=== PATIENT | female | born 1955 | race Caucasian/White ===

== ENCOUNTER → 2020-07-30 13:33 | Outpatient (CLI) | payer OTHER, SELFPAY ==
--- NOTE | ~2020-07-30 | MM_ITS ---
EXAMINATION: MM screening [facility] BI w winnie HISTORY: Screening mammogram TECHNIQUE: Craniocaudal and mediolateral oblique 3-D tomosynthesis images were obtained and synthetic 2-D images were generated. CAD analysis was submitted and interpreted. COMPARISON: 02/15/2019, 09/11/2017, 08/04/2016 BREAST PARENCHYMAL COMPOSITION: The breasts are heterogeneously dense, which may obscure small masses . FINDINGS: There is no evidence of suspicious mass, calcification, or architectural distortion to sugg est malignancy in either breast. There has been no suspicious interval change. IMPRESSION: 1. No mammographic evidence of malignancy. 2. Recommend routine screening mammography in one year. BI-RADS Category 1: Negative Reviewed, dictated and finalized at location A. RAIL HELPER
== END ==
PROVIDERS: PCP Internal Medicine; Visit Provider Internal Medicine
DX: Z12.31 Encounter for screening mammogram for malignant neoplasm of breast (principal)
CPT/HCPCS: 77063; 77067

== ENCOUNTER → 2021-09-17 10:29 | Outpatient (CLI) | payer OTHER, SELFPAY ==
--- NOTE | ~2021-09-17 | MM_ITS ---
EXAMINATION: MM screening [facility] BI w winnie HISTORY: Screening mammogram TECHNIQUE: Craniocaudal and mediolateral oblique 3-D tomosynthesis images were obtained and synthetic 2-D images were generated. CAD analysis was submitted and interpreted. COMPARISON: 07/30/2020, 02/15/2019, 09/11/2017 BREAST PARENCHYMAL COMPOSITION: The breasts are heterogeneously dense, which may obscure small masses . FINDINGS: There is no evidence of suspicious mass, calcification, or architectural distortion to sugg est malignancy in either breast. There has been no suspicious interval change. IMPRESSION: 1. No mammographic evidence of malignancy. 2. Recommend routine screening mammography in one year. BI-RADS Category 1: Negative Reviewed, dictated and finalized at location A. DEODORIZER SERVICER
== END ==
PROVIDERS: PCP Internal Medicine; Visit Provider Internal Medicine
DX: Z12.31 Encounter for screening mammogram for malignant neoplasm of breast (principal)
CPT/HCPCS: 77063; 77067

== ENCOUNTER → 2022-12-02 14:46 | Outpatient (CLI) | payer MEDICARE, SELFPAY ==
--- NOTE | ~2022-12-02 | MM_ITS ---
EXAMINATION: MM screening [facility] BI w winnie HISTORY: Screening TECHNIQUE: Craniocaudal and mediolateral oblique 3-D tomosynthesis images were obtained and synthetic 2-D images were generated. CAD analysis was submitted and interpreted. COMPARISON: Comparison to multiple prior studies sequentially, with oldest reviewed study dated 07/16 sixth. BREAST PARENCHYMAL COMPOSITION: The breasts are heterogeneously dense, which may obscure small masses FINDINGS: Stable bilateral breast asymmetries. No new masses, calcifications or architectural distort ion to suggest malignancy. There is no evidence of suspicious mass, calcification, or architectural d istortion to suggest malignancy in either breast. There has been no suspicious interval change. IMPRESSION: 1. No mammographic evidence of malignancy. 2. Recommend routine screening mammography in one year. BI-RADS Category 2: Benign finding(s). Reviewed, dictated and finalized at location A.
== END ==
PROVIDERS: PCP Internal Medicine; Visit Provider Internal Medicine
DX: Z12.31 Encounter for screening mammogram for malignant neoplasm of breast (principal)
CPT/HCPCS: 77063; 77067

== ENCOUNTER 2023-12-23 11:19 | Outpatient (CLI) | payer MEDICARE, SELFPAY ==
--- NOTE | ~2023-12-23 | MM_ITS ---
EXAMINATION: MM screening [facility] BI w winnie HISTORY: Screening mammogram TECHNIQUE: Craniocaudal and mediolateral oblique 3-D tomosynthesis images were obtained and synthetic 2-D images were generated. Bilateral rotated lateral CC views. CAD analysis was submitted and interp reted. COMPARISON: 12/02/2022, 09/17/2021, 07/30/2020 bilateral screening mammogram examinations BREAST PARENCHYMAL COMPOSITION: The breasts are heterogeneously dense, which may obscure small masses . FINDINGS: . Possible mass in upper mid right breast. Diagnostic right mammogram is recommended, with ultrasound if required. Otherwise no suspicious mass, architectural distortion, malignant calcification, skin thickening or r etraction or significant new or developing density of either breast is detected. IMPRESSION: 1. Possible mass in upper mid right breast 2. Diagnostic right mammogram is recommended, with ultrasound if required BI-RADS Category 0: Incomplete: Needs additional imaging evaluation. Reviewed, dictated and finalized at location A.
== END 2023-12-23 11:20 ==
PROVIDERS: PCP Family Medicine; Visit Provider Family Medicine
DX: Z12.31 Encounter for screening mammogram for malignant neoplasm of breast (principal); R92.8 Other abnormal and inconclusive findings on diagnostic imaging of breast
CPT/HCPCS: 77063; 77067

== ENCOUNTER 2024-01-22 08:14 | Outpatient (CLI) | payer MEDICARE, OTHER, SELFPAY ==
--- NOTE | ~2024-01-22 | MMUS_ITS ---
EXAMINATION: MM diagnostic [facility] RT w winnie, US breast RT complete HISTORY: Possible mass in the upper mid right breast reported on December 23, 2023 screening mammogram TECHNIQUE: Additional 3-D tomosynthesis images of the right breast were performed and synthetic 2-D i mages were generated. CAD analysis was submitted and interpreted. High resolution complete right fany st ultrasound examination including all 4 quadrants and subareolar area was performed. COMPARISON: December 23, 2023 bilateral screening mammogram 08/2016 complete right breast ultrasound examination, reported negative FINDINGS: MAMMOGRAPHIC FINDINGS: No suspicious mass or architectural distortion, malignant calcification, skin thickening or retractio n is evident. ULTRASOUND: 9:00 3 cm from nipple: Approximately 3 mm cyst. No suspicious mass or shadowing of the right breast is detected. IMPRESSION: 1. No mammographic or sonographic evidence of malignancy right breast 2. Routine annual mammographic screening is recommended BI-RADS Category 2: Benign finding(s). Reviewed, dictated and finalized at location B. IMPRESSION: 1. No mammographic or sonographic evidence of malignancy right breast 2. Routine annual mammographic screening is recommended BI-RADS Category 2: Benign finding(s).
== END 2024-01-22 08:15 ==
LOC: MICIMG 08:16
PROVIDERS: PCP Family Medicine; Visit Provider Family Medicine
DX: R92.8 Other abnormal and inconclusive findings on diagnostic imaging of breast (principal)
CPT/HCPCS: 76641; 77061; 77065; G0279

== ENCOUNTER 2024-12-29 12:32 | Outpatient (CLI) | payer MEDICARE, OTHER, SELFPAY ==
--- NOTE | ~2024-12-29 | MM_ITS ---
EXAMINATION: MM screening jaimee BI w winnie HISTORY: Screening TECHNIQUE: Craniocaudal and mediolateral oblique 3-D tomosynthesis images were obtained and synthetic 2-D images were generated. CAD analysis was submitted and interpreted. COMPARISON: Comparison to multiple prior studies sequentially, with oldest reviewed study dated 12/2018. BREAST PARENCHYMAL COMPOSITION: Dense: The breasts are heterogeneously dense, which may obscure small masses FINDINGS: There is no evidence of suspicious mass, calcification, or architectural distortion to sugg est malignancy in either breast. There has been no suspicious interval change. IMPRESSION: 1. No mammographic evidence of malignancy. 2. Recommend routine screening mammography in one year. BI-RADS Category 1: Negative Reviewed, dictated and finalized at location B.
--- OUTSIDE RECORDS SUMMARY | 2024-12-29 12:50 | XMS_ITS | Clinical Summary ---
Author Organization [facility] Address [address] [place] [address] Phone Care Team Providers Care Aircraft Refueler Name Role Phone Unavailable Primary Care Provider Unavailabl e Allergies Active Allergy Reactions Criticality Noted Date Comments Adhesive Unknown 02/12/2022 Metoprolol Other (See Comments),Constipation Low 01/30/2020 Constipation, weight gain Constipation, weight gain Medications Insulin [place], Disposable, (BD Ultra-Fine Mini Pen Needle) 31 gauge x 3/16 Needle Use with daily teriparatide injections 100 Each 2 Active diltiaZEM (CARDIZEM CD) 120 mg Controlled Delivery 24 hour capsule Take 120 mg by mouth daily. Active Cholecalciferol , Vitamin D3, 50 mcg (2,000 unit) Capsule Take 2,000 Units by mouth daily. otc Active apixaban (Eliquis) 5 mg tablet Take 2.5 mg by mouth 2 times daily. Per cardio Active sotalol HCl (SOTALOL ORAL) Take by mouth. Active Active Problems Problem Noted Date Diagnosed Date Age-related osteoporosis wit hout current pathological fracture 12/31/2022 Hypercalciuria 12/31/2022 Compression fracture of thor acic vertebra with routine healing 12/31/2022 High serum vitamin D 06/11/2022 Resolved Problems Problem Noted Date Diagnosed Date Resolved Date Localized osteoporosis with current pathological fracture 06/11/2022 07/22/2023 Encounters Date Type Department Care Team Description 11/30/2024 External Device Data STL ABSTRACTION Provider, Abstract 11/19/2024 External Device Data ST[facility] ABSTRACTION Provider, Abstract 11/18/2024 External Device Data [facility] ABSTRACTION Provider, Abstract 2024 External Device Data [facility] ABSTRACTION Provider, Abstract 11/15/2024 External Device Data STL ABSTRACTION Provider, Abstract 11/01/2024 External Device Data STL ABSTRACTION Provider, Abstract 10/05/2024 External Device Data STL ABSTRACTION Provider, Abstract 10/04/2024 External Device Data STL ABSTRACTION Provider, Abstract from Last 3 Months Family History Medical History Relation Name Comments Other Brother suicide Other Daughter depression Cancer Father Heart Attack Father No Known Problems Mother MVA Relation Name Status Comments Brother Daughter Alive Father Mother Sister Alive Social History Tobacco Use Types Packs/Day Years Used Date Smoking Tobacco: Never Tobacco Cessation:Counseling Given: Not Answered Alcohol Use Standard Drinks/Week Comments Yes 0 (1 standard drink = 0.6 oz pur e alcohol) very occasional Comments Unknown Sex and Gender Information Value Date Recorded Sex Assigned at Not on file 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 Gender Identity Not on file Sexual Orientation Not on file Last Filed Vital Signs Vital Sign Reading Time Taken Comments Blood Pressure 126/78 01/21/2024 8:54 AM CDT Pulse 76 01/21/2024 8:54 AM CDT Temperature - - Respiratory Rate - - Oxygen Saturation 98% 01/21/2024 8:54 AM CDT Inhaled Oxygen Concentration - - Weight 57.6 kg (127 lb) 01/21/2024 8:54 AM CDT Height 157.5 cm (5' 2 ) 01/21/2024 8:54 AM CDT Body Mass Index 23.23 01/21/2024 8:54 AM CDT Plan of Treatment Health Maintenance Due Date Last Done Comments FIT-DNA Q 3 years 2001 FIT/FOBT Q 1 year 2001 Flex Sig/CT Colonography Q 5 years 2001 PNEUMOCOCCAL VACCINE 50+ YEA RS (1 of 1 - PCV) 2006 ZOSTER VACCINE (1 of 2) 2006 INFLUENZA VACCINE (#1) 2024 BREAST CANCER SCREENING 01/21/2025 01/22/20 24, 12/23/2023, 12/02/2022, Additional history exists DTAP/TDAP/TD VACCINES (2 - T d or Tdap) 07/04/2030 07/04/2020 RSV VACCINE (60+ or ) (1 - 1-dose 75+ series) 11/17/2031 COLORECTAL SCREENING 04/03/2032 04/03/2022, 02/24/20 15 Colorectal Cancer Screening 04/03/2032 OSTEOPOROSIS SCREENING Completed 4, 09/03/2022, 09/03/2022, Additional history exists Procedures Procedure Name Priority Date/Time Associated Diagnosis Comments XR DEXA BONE DENSITY 2 SITES Routine 09/03/2022 from Last 3 Months or Most Recently Relevant to Health Maintenance Results * XR DEXA BONE DENSITY 2 SITES (09/03/2022) Anatomical Region Laterality Modality Other us Marta Bethea MD DIAGNOSTIC IMAGING ORDERA BLES Final Result from Last 3 Months or Most Recently Relevant to Health Maintenance Insurance RX [employer] RX Member Subscriber Plan / Payer (Ef fective 2022-Present) Name:Jaimie Jorge Relation to Subscriber:Not on file Name:Jaimie Jorge Date of :1955 Payer ID:Not on file Type:RX Commercial Address: [address] [employer] [place] SUPP MEDICARE PART A AND B
--- OUTSIDE RECORDS SUMMARY | 2024-12-29 12:50 | XMS_ITS | Data Portability ---
Author Organization [place] [facility] Address [address] [address] Assessment Encounter Date Assessment Date Assessment LastModified by Organization Details LastModified Time 01/14/2024 01/14/2024 Jaimie has postmenopausal osteopenia. Her Fragility scores were very reasonable as were her Z-scores. I recommend a resistance exercise program and referred her to PT to start LiftMor exercises. Will see back in one year for repeat Echo. No recommendation for medications at this time. May continue current supplements. [email or web address] Not available 01/14/2024 23:37:05 Plan of Treatment Reminders Order Date Submit Date Provider Last Modified By Organization Details Last Modified Time Details Appointments None recorded. Lab None recorded. Referral physical therapist referral - Please initiate Liftmor study protocol for bone health and provide home program. Please also do full assessment . Thank you. 2023 024 [email or web address] Not available 14:58:17 Procedures None recorded. Surgeries None recorded. Imaging None recorded. Medication Orders None recorded. Patient TargetsNo targets recorded. Patient InstructionsNo instructions recorded. Reason for Referral Physical Therapist Referral for Postmenopausal osteopenia Please initiate Liftmor study protocol for bone health and provide home program. Please also do full assessment. Thank you. Referring Physician: Ross Jarquin, Sports Medicine, Encounter Date: 01/14/2024 Results Created Date Observation Date Name Description Value Unit Range Abnormal Flag Note LastModifiedBy Organization Detail LastModifiedTime 01/14/20 24 12/30/2023 DEXA No observ ation record ed. BARCODE Not Available 2023 13:59:40 01/14/20 09/03/2022 DEXA No observ ation record ed. BARCODE Not Available 2023 14:01:18 01/14/20 24 01/14/2024 imagi ng/di agnos tic resul t No observ ation record ed. BARCODE Not Available 2023 14:42:46 01/14/20 24 01/14/2024 imagi ng/di agnos tic resul t No observ ation record ed. BARCODE Not Available 2023 15:11:47 01/15/20 24 01/14/2024 imagi ng/di agnos tic resul t No observ ation record ed. [email or web address] Not Available 2023 13:14:19 01/15/20 24 01/14/2024 imagi ng/di agnos tic resul t No observ ation record ed. [email or web address] Not Available 2023 13:14:19 01/15/20 24 01/14/2024 imagi ng/di agnos tic resul t No observ ation record ed. [email or web address] Not Available 2023 13:14:19 Result Notes None recorded. Problems Name Problem SNOMED Code Status Onset Date Resolution Date Notes Provider Name and Address Organization Details Recorded Time Arthritis 2101689 Active 2023 Jodie rich [place] [facility] 4 14:52:58 Atrial fibrillation 23909545 Active 2023 BENITA Rhodes - [facility] 4 14:53:25 Gastroesophage al reflux disease 494432839 Active 2023 BENITA Rhodes - [facility] 4 14:53:33 Problem Notes None recorded. Procedures Surgical History Date Name Laterality Status Provider Name and Address Organization Details Recorded Time 01/14/2024 Echolight completed Ross Jarquin MD [address] [facility] [address], [place], [address], [place] [facility] 01/14/2024 23:35:08 Imaging Results Imaging Date Name Status LastModified by [facility] Details LastModified Time 12/30/2023 DEXA completed BARCODE Information no t available 01/14/2024 13:59:40 09/03/2022 DEXA completed BARCODE Information no t available 01/14/2024 14:01:18 01/14/2024 imaging/diag nostic result completed BARCODE Information not available 01/14/2024 14:42:46 01/14/2024 imaging/diag nostic result completed BARCODE Information not available 01/14/2024 15:11:47 01/14/2024 imaging/diag nostic result completed [email or web address] Information not available 01/29/2024 13:14:19 01/14/2024 imaging/diag nostic result completed [email or web address] Information not available 01/29/2024 13:14:19 01/14/2024 imaging/diag nostic result completed [email or web address] Information not available 01/29/2024 13:14:19 Procedure Notes None recorded. Medical Equipment None Reported. Allergies No known drug allergies Medications Name Sig Start Date Stop Date Status Note LastModified by Organization Details LastModified Time methocarbam ol 500 mg tablet 01/13 completed Not Available Not Available Not Available sotalol 80 mg tablet TAKE 1 TABLET BY MOUTH TWICE A DAY active Not Available Not Available No t Available tramadol 50 mg tablet TAKE 1 TABLET BY MOUTH EVERY 6 HOURS NEEDED FOR PAIN 01/13 completed Not Available Not Available Not Available ofloxacin 0.3 % ear drops INSTILL 5 DROPS TO RIGHT EAR TWICE DAILY FOR 10 DAYS 01/13 completed Not Available Not Available Not Available diltiazem CD 120 mg capsule,ext ended release 24 hr TAKE ONE CAPSULE BY MOUTH EVERY DAY 01/13 completed Not Available Not Available Not Available polyethylen e glycol 3350 17 gram/dose oral powder MIX 1 CAPFUL OF POWDER IN LIQUID AND DRINK BY MOUTH EVERY DAY 01/13 completed Not Available Not Available Not Available methylpredn isolone 4 mg tablets in a dose pack FOLLOW PACKAGE DIRECTION S 01/13 completed Not Available Not Available Not Available cefdinir 300 mg capsule TAKE ONE CAPSULE BY MOUTH TWICE DAILY 01/13 completed Not Available Not Available Not Available diltiazem 60 mg tablet TAKE 1 TABLET (60 MG) BY MOUTH DAILY NEEDED FOR PALPITATI ONS 01/13 completed Not Available Not Available Not Available progesteron e micronized 100 mg capsule TAKE 1 CAPSULE BY MOUTH EVERY EVENING AT BEDTIME 01/13 completed Not Available Not Available Not Available amoxicillin 875 mg-potassiu m clavulanate 125 mg tablet TAKE 1 TABLET BY MOUTH TWICE DAILY FOR 10 DAYS 01/13 completed Not Available Not Available Not Available neomycin-po lymyxin-hyd rocort 3.5 mg-10,000 unit/mL-1 % ear drops,susp SHAKE LIQUID AND INSTILL 3 DROPS TO RIGHT EAR FOUR TIMES DAILY 01/13 completed Not Available Not Available Not Available Eliquis 5 mg tablet TAKE 1 TABLET BY MOUTH TWICE A DAY FOR ATRIAL FIBRILLAT ION active Not Available Not Available No t Available Vitals Date Recorded Body height Body mass index (BMI) Body weight Heart rate Systolic blood pressure Diastolic blood pressure Provider Name and Address Organization Details Last Updated DateTime 4 152.4 cm 24.8 kg/m2 80917.2 3 g 79 /min 124 mm[Hg] 72 mm[Hg] Jodie [facility] - [facility] 14:36:19 Social History Question Answer Notes LastModified by Organizat ion Details LastModified Time Tobacco Smoking Status Never Smoker BENITA [facility]odse - [facility] 01/14/2024 15:23:21 What Is Your Level Of Alcohol Consumption? Occasional Information not available 01/14/2024 Are You Blind Or Do You Have Difficulty Seeing? No [email or web address] Information not available 01/14/2024 Are You Currently Employed? No Retired [email or web address] Information not available 01/14/2024 Are You Deaf Or Do You Have Serious Difficulty Hearing? No Information not available 01/14/2024 What Type Of Diet Are You Following? REGULAR [email or web address] Information not available 01/14/2024 Which Of Your Hands Is Dominant? Left Information not available 01/14/2024 What Is Your Relationship Status? Information not available 01/14/2024 Do You Use Your Seat Belt Or Car Seat Routinely? Yes [email or web address] Information not available 01/14/2024 What Types Of Sporting Activities Do You Participate In? Walking [email or web address] Information not available 01/14/2024 Do You Use Any Illicit Or Recreational Drugs? No [email or web address] Information not available 01/14/2024 Do You Use Sunscreen Routinely? Yes [email or web address] Information not available 01/14/2024 Do You Or Have You Ever Used Any Other Forms Of Tobacco Or Nicotine? No [email or web address] Information not available 01/14/2024 Sex: Unknown Functional Status Question Answer Note LastModified by Organizat ion Details LastModified Time Do you have difficulty walking or climbing stairs? No [email or web address] Information not available 01/14/2024 Are you able to walk? YESWOREST [email or web address] Information not available 01/14/2024 Do you have difficulty doing errands alone? No [email or web address] Information not available 01/14/2024 Are you able to care for yourself? Yes Information not available 01/14/2024 Do you have difficulty dressing or bathing? No [email or web address] Information not available 01/14/2024 What is your exercise level? Moderate [email or web address] Information not available 01/14/2024 Mental Status Question Answer Note LastModified by Organization D etails LastModified Time Do you have difficulty concentrating, remembering or making decisions? No Information no t available 01/14/2024 Family History Relationship Description Onset Age of this Age Resolved Age Notes LastModified by Organization Details LastModified Time Father Arthritis Not availab le 01/14/2024 14:56:23 Mother Arthritis [email or web address] Not availab le 01/14/2024 14:56:23 Mother Depressive disorder [email or web address] Not available 2023 15:35:23 Unspecified Relation Arthritis grandp arents -unspe cified on mother or father side [email or web address] Not available 01/14/2024 14:56:23 Unspecified Relation Hypercholest erolemia Grandm other- unspec ified on mother or father side [email or web address] Not available 01/14/2024 15:35:15 Unspecified Relation Hypertensive disorder Grandm other- unspec ified on mother or father side [email or web address] Not available 01/14/2024 15:36:02 Daughter Disorder of thyroid gland [email or web address] Not available 2023 15:36:11 Medical History Condition Response Coronary Artery Disease N Other N Gout N MRSA N Blood Transfusion N Emphysema N Head Trauma/Injury N heart arrhythmia N COPD N Depression N Prostate Problems N Gastrointestinal Disease N Paralysis N Anxiety Disorder N Autoimmune disease N Vision or Eye Problems N Arthritis Y Blood Clot N Cancer N Stroke N Crohn's Disease N Leg or Foot Ulcers N Polio N Arrhythmia N Rheumatoid Arthritis N Fibromyalgia N Headaches N Kidney Disease N Heart Problems N sports induced asthma N Hospitalizations N Migraines N Artificial Joints N Kidney or Bladder Problems N Skin Problems N Joint Pain N Neck Pain N Urinary Problems N Brain Injury N Ulcers N Bleeding Disorder N Tuberculosis N AIDS/HIV N Asthma N Amputation N Peripheral Vascular Disease N Sleep Disorder N Hepatitis N Neuropathy N Pulmonary Embolism N Anxiety/Depression N Thyroid Disease N Hernia N Ostomy N Lung Disease N Pacemaker N Vascular Disease N Anesthesia Complications N Spasticity N Orthotics N Head Injury/Concussion Y Serious Illness or Injuries N Alcohol Overuse/Alcohol Abuse N High Cholesterol N Liver Disease N Parkinson's Disease N Falls N Thyroid Problems N ADD/ADHD N Osteoporosis/Osteopenia N Lyme disease N Anemia N Multiple Sclerosis N Back Pain N Heart Attack ([place]) N Mental Illness N Diabetes N Seizures/Epilepsy N Congestive Heart Failure (CHF) N Hyperlipidemia N Ankylosing Spondylitis N Epilepsy/Seizures N Sleep Apnea N Aneurysm N Heart Disease Y Hypertension N Osteoporosis N Gynecological HistoryNo gynecological history recorded. Obstetrics History GPAL:G 0 P 0 0 0 0 Past Encounters Encounter ID Performer Location Encounter Start Date Encounter Closed Date Diagnosis/Indication Diagnosis SNOMED-CT Code Diagnosis ICD10 Code Diagnosis Note [id number] Ross Jarquin MD [facility] [address] [address] 01/14/2024 13:50:04 01/14/2024 15:23:19 Postmenopausal osteopenia 533665668 M85.80 Health Concerns Section Related Observation LastModified by Organization Detai ls LastModified Time None Recorded Concern Status LastModified by Organization Details LastModified Time None Recorded Advance Directives Directive None Recorded Payers Encounter Date Sequence Insurance Name Policy Number Policy Shanks Covered Member ID Shanks Member ID Guarantor Name 01/14/2024 1 *SELF PAY* Manuela Jorge Notes Date Note Type Note Provider Name and Address Organization Details Recorded Time 01/14/2024 text/html Jaimie presents f or Echolight. Recent DXA in 12/30/23 showed lumbar spine of (-1.3) and LT fem neck of (-2.4). Hx of L-spine as low as (-2.4). She started teraperatide (Forteo) and developed a-fib. She then went off of the med and a-fib went away. She is being advised now to start other medications. Jaimie was first diagnosed with osteoporosis in 2020. She has been eating healthier and walking 5mi/day to help with her bone density. Jaimie has a hx of fragility fracture at L1 for which she had a vertebroplasty in 08/04. She then had a second fragility fracture at T12 in 09/03. Ross Jarquin MD [address] [facility] [address], [place], [address], [facility] 01/14/2024 23:37:44 OBGyn Episode No OBEpisode recorded.
--- OUTSIDE RECORDS SUMMARY | 2024-12-29 12:50 | XMS_ITS | Clinical Summary ---
Author Organization [facility] Address [address] [place] [address] Care Team Providers Care Mainframe Programmer Analyst Name Role Phone Mariam Goldberg MD Unavailable Marta Bethea MD Unavailable [phone] Charles Franco MD Primary Care Provider [phone] Allergies Active Allergy Reactions Criticality Noted Date Comments Metoprolol Other (see comment) Low 01/30/2020 Constipation, weight gain Tape Rash Low 02/12/2022 Medications Ascorbic Acid 1000 MG Tab Take 1,000 mg by mouth. Active calcium carbonate (OS-ALIYAH) 1250 (500 Ca) MG tablet Take 2 tablets (2,500 mg total) by mouth daily. Active Menaquinone-7 (K2 OR) Take 1 capsule by mouth daily. Active melatonin 10 MG tablet Take 1 tablet (10 mg total) by mouth nightly at bedtime. Active magnesium oxide (MAG-OX) 250 MG tablet Take 2 tablets (500 mg total) by mouth daily. Active dilTIAZem (CARDIZEM) 60 MG tablet TAKE 1 TABLET (60 MG) BY MOUTH DAILY NEEDED FOR PALPITATIONS 90 tablet 4 Active apixaban (ELIQUIS) 5 MG tablet Take 1 tablet (5 mg total) by mouth 2 (two) times daily. 180 tablet 1 5 Active sotalol (BETAPACE) 80 MG tablet Take 1 tablet (80 mg total) by mouth 2 (two) times daily. 180 tablet 1 5 Active neomycin-polym yxin-hydrocort isone (CORTISPORIN) 3.5-68923-[address] 3 drops into the right ear 4 (four) times daily. 3 025 Discontin ued(Thera py completed ) ELIQUIS 5 MG tablet TAKE 1 TABLET BY MOUTH TWICE A DAY FOR ATRIAL FIBRILLATION 180 tablet 2 4 025 Discontin ued(Reord er) sotalol (BETAPACE) 80 MG tablet TAKE 1 TABLET BY MOUTH 2 TIMES DAILY. 180 tablet 1 4 025 Discontin ued(Reord er) Active Problems Problem Noted Date Diagnosed Date Dyspepsia 10/06/2022 Aortic regurgitation 09/02/2022 Osteoporosis 08/21/2022 Other constipation 06/24/2021 Acute left-sided low back pain with right-sided sciatica 06/24/2021 Gastritis without bleeding, unspecified chronicity, unspecified gastritis type 02/25/2019 Intestinal metaplasia of gastric mucosa 02/26/20 Obstructive sleep apnea 01/30/2019 Hiatal hernia 11/24/2018 Chronic atrophic gastritis 11/24/2018 Gastroesophageal reflux dise ase, esophagitis presence not specified 11/10/2018 Episode of moderate major depression 08/11/2018 Paroxysmal atrial fibrillation ([facility]) 08/08/2018 Resolved Problems Problem Noted Date Diagnosed Date Resolved Date Atrial fibrillation with RVR ([facility] HHS/HCC) 08/18/2023 12/27/2024 Atrial fibrillation with RVR ([facility] H[facility]/HCC) 08/21/2022 01/27/2023 Hip pain, left 05/20/2017 09/21/2018 Encounters Date Type Department Care Team Description 12/20/2024 2:00 PM CDT Office Visit [facility] [address] [address] Mariam Goldberg MD Follow Up (6 months/NSTEMI); Atrial Fibrillation (Paroxysmal Atrial Fibrillation) 12/20/2024 Travel from Last 3 Months Immunizations Immunization Administration Dates Next Due Fluzone Adult - >Age 3 (Pref illed Syringe) 06/19/2021(Deferred: Parent refused - Pt REFUSES) Tdap (Adacel) 07/04/2020 Family History Medical History Relation Comments Lung Cancer Father Sudden Father Dementia Maternal Grandmother Sudden Paternal Grandfather Relation Status Comments Father Maternal Grandmother Mother Paternal Grandfather Paternal Grandmother Other Social History Tobacco Use Types Packs/Day Years Used Date Smoking Tobacco: Never Smokeless Tobacco: Never Alcohol Use Standard Drinks/Week Comments Yes 0 (1 standard drink = 0.6 oz pur e alcohol) Occasional [facility] Utilities Answer Date Recorded In the past 12 months has e [employer], gas, oil, or water [employer] threatened to shut off services in your home? No 08/19/2023 Humiliation, Afraid, Rape, and Kick questionnair e Answer Date Recorded Within the last year, have y ou been afraid of your partner or ex-partner? No 08/19/2023 Within the last year, have y ou been humiliated or emotionally abused in other ways by your partner or ex-partner? No Within the last year, have y ou been kicked, hit, slapped, or otherwise physically hurt by your partner or ex-partner? No 08/19/2023 Within the last year, have y ou been raped or forced to have any kind of sexual activity by your partner or ex-partner? No 08/19/2023 AUDIT-C Answer Date Recorded Frequency of Alcohol Consumption Monthly or less 07/27/2018 Average Number of Drinks Not on file 018 Frequency of Binge Drinking Never 07/15 Overall Financial Resource Strain (CARDIA) Answe r Date Recorded How hard is it for you to pa y for the very basics like food, housing, medical care, and heating? Not hard at all 08/19/2023 PHQ-2 Answer Date Recorded Patient Health Questionnaire-2 Score 0 10/03/2022 Hunger Vital Sign Answer Date Recorded Within the past 12 months, y ou worried that your food would run out before you got the money to buy more. Never true 08/19/20 23 Within the past 12 months, t he food you bought just didn't last and you didn't have money to get more. Never true 08/19/2023 PRAPARE - Transportation Answer Date Re corded In the past 12 months, has l ack of transportation kept you from medical appointments or from getting medications? No 02/2023 In the past 12 months, has l ack of transportation kept you from meetings, work, or from getting things needed for daily living? No 08/19/2023 Housing Stability Vital Sign Answer Jer e Recorded In the last 12 months, was t here a time when you were not able to pay the mortgage or rent on time? No 08/19/2023 In the last 12 months, how many places have you lived? 1 08/19/2023 In the last 12 months, was t here a time when you did not have a steady place to sleep or slept in a longterm (including now)? No 08/19/2023 Education Answer Date Recorded What is the highest level of school you have completed or the highest degree you have received? Bachelor's degree (e.g., BA, AB, BS) 07/27/2018 Comments No Sex and Gender Information Value Date Recorded Sex Assigned at Female 07/27/2018 8:57 AM DRIVER'S LICENSE REVIEWING OFFICER Legal Sex Female 8:45 PM CDT Gender Identity Not on file Sexual Orientation Not on file Last Filed Vital Signs Vital Sign Reading Time Taken Comments Blood Pressure 138/72 12/20/2024 1:59 PM CDT Pulse 78 12/20/2024 1:59 PM CDT Temperature 36.4 C (97.5 F) 08/21/2023 10:42 AM DRIVER'S LICENSE REVIEWING OFFICER Respiratory Rate 18 08/21/2023 10:42 AM DRIVER'S LICENSE REVIEWING OFFICER Oxygen Saturation 98% 12/20/2024 1:59 PM CDT Inhaled Oxygen Concentration - - Weight 57.2 kg (126 lb) 12/20/2024 1:59 PM CDT Height 157.5 cm (5' 2 ) 12/20/2024 1:59 PM CDT Body Mass Index 23.05 12/20/2024 1:59 PM CDT Plan of Treatment Upcoming Encounters Date Type Department Care Team (Late st Contact Info) Description 06/13/2025 12:15 PM CDT Office Visit [facility], [address] [place], [place] [id number] Chuyita Abbott, ANP-BC [facility]. [address] [place], [place] [id number] Health Maintenance Due Date Last Done Comments Pneumococcal Vaccine: 50+ Years (1 of 2 - PCV) 11/17/1975 Zoster Vaccines (1 of 2) 2006 RSV Immunization or 60+ Years (1 - Risk 60-74 years 1-dose series) 2016 Annual Medicare Wellness Visit 2021 COVID-19 Vaccine (1 - season) 2024 Mammogram Screening 12/02/2024 12/02/2022, 09/17/2021, 07/30/2020, Additional history exists Colorectal Cancer Screening Colonoscopy (10 Years) 02/23/2025 02/23/2015 DTaP, Tdap and Td Vaccines (2 - Td or Tdap) 07/04/2030 07/04/2020 Hepatitis C Completed 08/07/2021 Dexa Scan (General) Completed 09/03/2022, Meningococcal B Vaccine Aged Out No l onger eligible based on patient's age to complete this topic Meningococcal Vaccine Aged Out No lianne rogelio eligible based on patient's age to complete this topic RSV Immunizations Under 20 Months Aged Out No longer eligible based on patient's age to complete this topic Goals Goal Patient Goal Type Associated Problems Recent Progress Patient-Stated? Author Health - patient able to perform ADLs independently Lifestyle No Scarlett Zuñiga RN Procedures Procedure Name Priority Date/Time Associated Diagnosis Comments ELECTROCARDIOGRAM (NON MIDMARK ACQUIRED) Routine 12/20/2024 2:07 PM CDT Paroxysmal atrial fibrillation ([facility]/HCC [facility]/HCC) MAMMOGRAM GENERIC (SCAN ORDER) 12/02/2022 HEPATITIS C ANTIBODY 08/07/2021 8:45 AM DRIVER'S LICENSE REVIEWING OFFICER BONE DENSITY GENERIC (SCAN ORDER) 07/19/2021 COLONOSCOPY Routine 02/23/2015 12:00 AM CDT from Last 3 Months or Most Recently Relevant to Health Maintenance Results * ELECTROCARDIOGRAM (12/20/2024 2:07 PM CDT) 12/20/2024 2:07 PM CDT Narrative [facility] - 12/24/2024 6:24 AM CDT [facility] Test Date: 2024-12-20 Pat Name: JAIMIE JORGE Department: 112 Room: Gender: Female Sales Service Route Manager: : 1955 Requested By: MARIAM GOLDBEGR Order Number: [id number] Reading MD: Mariam Goldberg Measurements Intervals [place] Rate: 80 P: 35 DE: 167 QRS: -5 QRSD: 81 T: 41 QT: 388 QTc: 448 Interpretive Statements SINUS RHYTHM POSSIBLE LEFT ATRIAL ENLARGEMENT POSSIBLE RIGHT VENTRICULAR CONDUCTION DELAY POSSIBLE LEFT VENTRICULAR HYPERTROPHY Procedure Note Mariam Goldberg MD - 12/24/2024 [facility] Test Date: 2024-12-20 Pat Name: JAIMIE JORGE Department: 112 Room: Gender: Female Sales Service Route Manager: : 1955 Requested By: MARIAM GOLDBERG Order Number: [id number] Reading MD: Mariam Goldberg Measurements Intervals [place] Rate: 80 P: 35 DE: 167 QRS: -5 QRSD: 81 T: 41 QT: 388 QTc: 448 Interpretive Statements SINUS RHYTHM POSSIBLE LEFT ATRIAL ENLARGEMENT POSSIBLE RIGHT VENTRICULAR CONDUCTION DELAY POSSIBLE LEFT VENTRICULAR HYPERTROPHY us Mariam Goldberg MD PROCEDURES-ORDERABLE NO CHARGE F inal Result [facility] * MAMMOGRAM GENERIC (12/02/2022) Anatomical Region Laterality Modality Other 12/02/2022 us [facility] Scanned SCANNING Final Resu lt * HEPATITIS C ANTIBODY (08/07/2021 8:45 AM DRIVER'S LICENSE REVIEWING OFFICER) HEPATITIS C AB <0.1 0.0 - 0.9 s/co ratio [facility] 1 Comment: Negative: < 0.8 Indeterminate: 0.8 - 0.9 Positive: > 0.9 The CDC recommends that a positive HCV antibody result be followed up with a HCV Nucleic Acid Amplification test (509626). 08/07/2021 8:45 AM DRIVER'S LICENSE REVIEWING OFFICER 08/07/2021 Narrative [facility] - 08/08/2021 8:08 AM DRIVER'S LICENSE REVIEWING OFFICER Performed at: 01 - [facility] [address] [id number] Legal Billing Specialist: Ajit Monterroso PhD, Phone: [phone] us Tea Young MD LABORATORY Final Result [facility] [id number] [id number] [facility] 1 * BONE DENSITY GENERIC (07/19/2021) Anatomical Region Laterality Modality Other 07/19/2021 Narrative 07/19/2021 Ordered by an unspecified provider. us Documents Scanned SCANNING Final Result * Colonoscopy (02/23/2015 12:00 AM CDT) 02/23/2015 02/23/2015 Narrative [facility] TO EPIC CONVERSION - 02/23/2015 12:00 AM CDT Documented hx of procedure Procedure Note Janelle Toro MD - 07/18/2018 Documented hx of procedure us Generic Conversion Md [facility] PROCEDURE ORDERABLES Final Result [facility] TO EPIC CONVERSION from Last 3 Months or Most Recently Relevant to Health Maintenance Insurance MEDICARE [facility] Advance Directives * Full Code (Latest Code Status on File) Date Activated Date Inactivated Comments 08/18/2023 9:04 PM 08/21/2023 1:37 PM * Full Code Date Activated Date Inactivated Comments 08/21/2022 1:43 PM 08/22/2022 4:30 PM * Full Code Date Activated Date Inactivated Comments 08/10/2018 8:56 AM 08/11/2018 11:25 PM * Full Code Date Activated Date Inactivated Comments 08/10/2018 7:21 AM 08/10/2018 8:56 AM Care Teams Mainframe Programmer Analyst Relationship Specialty Start Date End Date Charles Franco MD [facility] [address] [place] [address] PCP - General FAMILY PRACTICE 01/12/23 Mariam Goldberg MD [facility] [address] [place] [address] [employer] Service Representative INTERVENTIONAL CARDIOLOGY 08/30/18 Marta Bethea MD [address] [place] [address] [address] [place] [address] [facility] 09/02/22
--- OUTSIDE RECORDS SUMMARY | 2024-12-29 12:50 | XMS_ITS | Encounter Summary ---
Author Organization [facility] Address [address] [place] [address] Care Team Providers Care Wound Specialist Name Role Phone Tea Young MD Primary Care Provider [phone] Adam Arango MD Unavailable Marta Bethea MD Unavailable [phone] Charles Franco MD Primary Care Provider [phone] Encounter Details Date Type Department Care Team (Late st Contact Info) Description 11/17/2018 DIRECTOR OF CORPORATE SALES ONLY [facility] [address] [place] [address] Scanned, Documents Social History Tobacco Use Types Packs/Day Years Used Date Smoking Tobacco: Never Smokeless Tobacco: Never Alcohol Use Standard Drinks/Week Comments Yes 0 (1 standard drink = 0.6 oz pur e alcohol) AUDIT-C Answer Date Recorded Frequency of Alcohol Consumption Monthly or less 07/27/2018 Average Number of Drinks Not on file 018 Frequency of Binge Drinking Never 07/15 Education Answer Date Recorded What is the highest level of school you have completed or the highest degree you have received? Bachelor's degree (e.g., BA, AB, BS) 07/27/2018 Comments No Sex and Gender Information Value Date Recorded Sex Assigned at Female 07/27/2018 8:57 AM DRY CHAIN PULLER Legal Sex Female 8:45 PM CDT Gender Identity Not on file Sexual Orientation Not on file documented as of this encounter Progress Notes * Brayden, Documents - 11/17/2018 12:00 AM CST JAIMIE JORGE MD: ACCT: [id number] ADMIT/SERVICE DATE: 11/17/18 DISCHARGE DATE: 11/17/18 : 1955 PT TYPE: DEP SDC SEX: F ORD SITE: [facility] REPORT OF PATHOLOGICAL EXAMINATION DATE OF SURGERY: 11/17/2018 SURGICAL PATH NO: [id number] DATE OBTAINED: 11/17/2018 DATE RETURNED: CHART DOCUMENT PATHOLOGICAL DIAGNOSIS: 1. BIOPSIES FROM PREPYLORIC ANTRUM: -FOCAL MILD CHRONIC GASTRITIS. -GIEMSA STAIN FOR H. PYLORI IS NEGATIVE. -FOCAL INTESTINAL METAPLASIA (CHRONIC ATROPHIC GASTRITIS) II. BIOPSIES FROM GASTROESOPHAGEAL JUNCTION: -FRAGMENTS OF SQUAMOUS MUCOSA SHOWING EDEMA, PARAKERATOSIS, AND CHRONIC INFLAMMATION -NO FUNGAL ELEMENTS PRESENT -GASTRIC MUCOSA SHOWING MILD CHRONIC INFLAMMATION -NO INTESTINAL METAPLASIA OR DYSPLASIA PRESENT SPECIMEN: #1 PREPYLORIC ANTRUM #2 DISTAL ESOPHAGUS GE JUNCTION GROSS EXAMINATION: THE SPECIMEN IS RECEIVED IN FORMALIN IN TWO CONTAINERS. THE FIRST CONTAINER IS LABELED WITH THE PATIENT'S NAME AND PREPYLORIC ANTRUM . THE SPECIMEN CONSISTS OF THREE LOMELI OVOID FRAGMENTS OF TISSUE RANGING IN SIZE FROM 0.2 UP TO 0.3 CM IN GREATEST DIMENSION. THE SPECIMEN IS SUBMITTED ENTIRELY IN A SINGLE CASSETTE LABELED A . GIEMSA STAIN WILL BE PERFORMED. THE SECOND CONTAINER IS LABELED WITH THE PATIENT'S NAME AND DISTAL ESOPHAGUS GE JUNCTION . THE SPECIMEN CONSISTS OF FOUR LOMELI OVOID FRAGMENTS OF TISSUE MEASURING 0.2 CM IN GREATEST DIMENSION. THE SPECIMEN IS SUBMITTED ENTIRELY IN A SINGLE CASSETTE LABELED B . BOTH GIEMSA AND ALCIAN BLUE/PAS STAINS WILL BE PERFORMED. CLAY/BANDAR 11/17/2018 11/17/2018 02:51 P MICROSCOPIC EXAMINATION: BLOCK A REVEALS SECTIONS OF THREE FRAGMENTS OF ANTRAL MUCOSA. ONE OF THEM IS NORMAL. THE OTHER FRAGMENT SHOWS MILD DIFFUSE INCREASED NUMBER OF PLASMA CELLS AND LYMPHOCYTES IN THE LAMINA PROPRIA. THERE ARE OCCASIONAL GOBLET CELLS PRESENT ON THE SURFACE AND IN THE GASTRIC PITS. GIEMSA STAIN FOR H. PYLORI IS NEGATIVE. BLOCK B GASTROESOPHAGEAL JUNCTION REVEALED THREE FRAGMENTS OF SQUAMOUS MUCOSA SHOWING EDEMA, PARAKERATOSIS, AND MILD INCREASED NUMBER OF INTRAEPITHELIAL LYMPHOCYTES. NO EOSINOPHILIA PRESENT. ONE OF THE SQUAMOUS FRAGMENTS SHOWS BENIGN HYPERPLASTIC LYMPHOID FOLLICLE WITH PROMINENT GERMINAL CENTER. ALSO PRESENT IS A FRAGMENT OF GASTRIC MUCOSA SHOWING MILD CHRONIC INFLAMMATION. NO INTESTINAL METAPLASIA OR DYSPLASIA PRESENT. GIEMSA STAIN FOR H. PYLORI IS NEGATIVE. PAS/ALCIAN BLUE STAIN SHOWS NO EVIDENCE OF INTESTINAL METAPLASIA. ELECTRONICALLY SIGNED BY ELOINA GRACE MD 11/18/2018 02:30 P DT: DAVON:11/18/2018 DOC NO: [id number] CHAIN PULLER documented in this encounter Plan of Treatment Upcoming Encounters Date Type Department Care Team (Late st Contact Info) Description 06/13/2025 12:15 PM CDT [facility] Visit [facility], [facility] [address] [place] [address] Chuyita Abbott, ANP-BC [facility]. [facility] [address] [place] [address] documented as of this encounter Visit Diagnoses Not on filedocumented in this encounter Care Teams Wound Specialist Relationship Specialty Start Date End Date Tea Young MD PCP - General INTERNAL MEDICINE 07/21/18 01/11/23 Charles Franco MD [facility] [address] [place] [address] PCP - General FAMILY PRACTICE 01/12/23 Adam Arango MD [facility]. [facility] [address] [place] [address] [employer] Boring Machine Operator INTERVENTIONAL CARDIOLOGY 08/30/18 Marta Bethea MD [address] [facility] [address] [place] [address] ENDOCRINOLOGY 09/02/22 documented as of this encounter
--- OUTSIDE RECORDS SUMMARY | 2024-12-29 12:51 | XMS_ITS | Referral Summary ---
Author Organization [facility] Address [address] [place] [phone] Care Team Providers Care Specimen Boss Name Role Phone Charles Franco MD Primary Care Provider + Encounters Date Type Department Care Team Description 10/19/2024 Telephone [facility] Orthopaedic Surgery [id number] [place] [address] 2nd Floor [address] [place] [phone] Judi Villatoro CMA 10/17/2024 1:00 PM TILE GRADER - 10/17/2024 11:59 PM TILE GRADER Hospital Encounter [facility] [address] [place] [address] [address] [place] [address] Right hip pain Discharge Disposition: Discharge to home or self care 10/17/2024 1:20 PM TILE GRADER Office Visit [facility] Orthopaedic Surgery [address] [facility] [address] [place] [address] Thong Jones MD Right hip pain (Primary Dx) from Last 3 Months Allergies Active Allergy Reactions Criticality Noted Date Comments Adhesive Unknown 12/24/2022 Metoprolol Other (See comments) Low 12/24/2022 Weight gain Medications Eliquis 5 mg tablet Take 1 tablet (5 mg total) by mouth 2 (two) times a day 3 Active polyethylene glycol (MIRALAX) 17 gram/dose powderIndication s:constipation Take 17 g by mouth daily 289 g 3 3 Active Additional Information Patient not taking.Reported on 10/17/2024 sotaloL (BETAPACE) 80 mg tablet Take 1 tablet (80 mg total) by mouth 2 (two) times a day 3 Active omeprazole (PriLOSEC) 40 mg capsuleIndicatio ns:Gastroesophag eal reflux disease without esophagitis Take 1 capsule (40 mg total) by mouth daily 90 capsule 1 3 Active Additional Information Patient not taking.Reported on 10/17/2024 dilTIAZem (CARDIZEM) 60 mg tablet Take 1 tablet (60 mg total) by mouth daily as needed (palpitations) 4 Active progesterone (PROMETRIUM) 100 mg capsule TAKE 1 CAPSULE BY MOUTH EVERY EVENING AT BEDTIME 4 Active Active Problems Problem Noted Date Diagnosed Date Vitamin D deficiency 10/17/2024 Primary osteoarthritis of right hip 10/17/2024 Gastroesophageal reflux disease without esophagi tis 08/25/2023 Assessment & Plan (12/25/2023 9:55 AM CDT): - stable - continue omeprazole prn Assessment & Plan (08/25/2023 4:33 PM TILE GRADER): - uncontrolled - start omeprazole Chronic idiopathic constipation 03/18/2023 Assessment & Plan (03/18/2023 4:25 PM CDT): - uncontrolled - start miralax daily Compression fracture of thor acic vertebra with routine healing 12/31/2022 Hypercalciuria 12/31/2022 Greater trochanteric bursitis of right hip 12/24 Assessment & Plan (12/25/2023 9:55 AM CDT): - continue PT - f/u in March for next injection Assessment & Plan (12/24/2022 10:23 AM CDT): - successful steroid injection of the R greater trocanteric bursa; pt lateral hip pain improved. - home PT - f/u prn Right hip pain 12/24/2022 Assessment & Plan (12/24/2022 10:22 AM CDT): - suspect both OA and greater torchanteric bursitis though internal derangement of the hip also a possibility - will get xray of R hip - based on xray will consider Mri of hip and ortho referral Paroxysmal atrial fibrillation 12/24/2022 Assessment & Plan (12/25/2023 9:54 AM CDT): - stable - continue eliquis and sotalol Assessment & Plan (08/25/2023 4:32 PM TILE GRADER): - stable - continue current medication Assessment & Plan (06/26/2023 10:35 AM CDT): - stable - continue current medication Assessment & Plan (12/24/2022 10:24 AM CDT): - had long discussion with pt regarding benefits of eliquis and diltiazem and possibility that she is going into Afib without knowing it. - rec pt restart medications - rec pt discuss with cardiology, consider 30 d monitor to look for afib burden Hx of compression fracture of spine 12/24/2022 Assessment & Plan (06/26/2023 10:35 AM CDT): - stable Assessment & Plan (12/24/2022 10:24 AM CDT): - given hx and loss of height will check spinal xray Age-related osteoporosis with current pathologic al fracture 12/24/2022 Assessment & Plan (12/25/2023 9:54 AM CDT): - uncontrolled - discussed medications and calcium intake - rec pt take fosamax or prolia but pt refusing - will get DEXA to see if pt is worsening from last DEXA Assessment & Plan (08/25/2023 4:32 PM TILE GRADER): - uncontrolled - rec pt consider seeing [facility] for 2nd opinion Assessment & Plan (06/26/2023 10:36 AM CDT): - uncontrolled - discussed risks associated with fx - continue calcium and vit d daily - rec pt continue discussion with endocrinology regarding options for treatment to prevent future fractures. Assessment & Plan (12/24/2022 10:25 AM CDT): - rec pt f/u with her claims supervisor to further discuss tx of her osteoprosis Dyspepsia 10/06/2022 Aortic regurgitation 09/02/2022 High serum vitamin D 06/11/2022 Tick bite 01/24/2022 Other constipation 06/24/2021 Intestinal metaplasia of gastric mucosa 02/26/20 Obstructive sleep apnea 01/30/2019 Chronic atrophic gastritis 11/24/2018 Episode of moderate major depression 08/11/2018 Resolved Problems Problem Noted Date Diagnosed Date Resolved Date Acute swimmer's ear of right side 08/12/2023 08/25/2023 Assessment & Plan (08/12/2023 6:38 AM TILE GRADER): Already tried ofloxacin, cipro-hydrortisone with no relief Will attempt cipro-dex, if no improvement, discussed she will need to see ENT Unable to visualize TM due to canal exudate and narrowing, will Rx cefdinir to cover for any concern of AOM Medrol dose pack Tylenol as needed for pain Acute bilateral low back deb n without sciatica 03/18/2023 06/26/2023 Assessment & Plan (03/18/2023 4:25 PM CDT): - suspect muscle spasm but given hx of compression fx will get imaging to ensure no new fx - continue home PT - robaxin and tramadol for pain Immunizations Immunization Administration Dates Next Due Influenza, Unspecified 06/26/2023(Deferr ed: Patient Refused),06/14/2022(Deferred: Patient Refused) Pneumococcal Conjugate Pcv20 12/24/2022(Deferred : Patient Refused) Tdap 07/04/2020 Social History Tobacco Use Types Packs/Day Years Used Date Smoking Tobacco: Never Smokeless Tobacco: Never Tobacco Cessation:Counseling Given: Not Answered AUDIT-C Answer Date Recorded Q1: How often do you have a drink containing alc ohol? 2-4 times a month 12/24/2022 Q2: How many drinks containi ng alcohol do you have on a typical day when you are drinking? 1 or 2 12/24/2022 Frequency of Binge Drinking Not on file 12/13 PHQ-2 Answer Date Recorded PHQ-2 Total Score (If total score is 3 or more points, staff should administer the PHQ-9) 0 06/26/2023 Comments Unknown Sex and Gender Information Value Date Recorded Sex Assigned at Not on file Legal Sex Female 9:03 AM CDT Gender Identity Not on file Sexual Orientation Not on file Occupation Industry Job Start Date Job End Date retired Not on file Not on file Not on file Last Filed Vital Signs Vital Sign Reading Time Taken Comments Blood Pressure 134/82 03/16/2024 9:35 AM CDT Pulse 61 03/16/2024 9:35 AM CDT Temperature 36.6 C (97.9 F) 03/16/2024 9:35 AM CDT Respiratory Rate 16 03/16/2024 9:35 AM CDT Oxygen Saturation 98% 03/16/2024 9:35 AM CDT Inhaled Oxygen Concentration - - Weight 60.8 kg (134 lb) 10/17/2024 1:57 PM TILE GRADER Height 149.2 cm (4' 10.75 ) 10/17/2024 1:[address] Body Mass Index 27.3 10/17/2024 1:57 PM TILE GRADER Plan of Treatment Upcoming Encounters Date Type Department Care Team (Late st Contact Info) Description 06/16/2025 Hospital Encounter [facility] Operating Room [address] [place] [address] Thong Jones MD [address] [facility] [address] [place] [address] Scheduled Procedures Name Priority Associated Diagnoses Date/Ti me ARTHROPLASTY TOTAL HIP - ANTERIOR APPROACH - MICROPORT Primary osteoarthritis of right hip Procedures Procedure Name Priority Date/Time Associated Diagnosis Comments XR HIP RIGHT W PELVIS 2 OR 3 VIEWS Schedule Routine, Read Routine (OP Routine) 10/17/2024 1:24 PM TILE GRADER Right hip pain SCREENING MAMMOGRAM BILATERAL W MOLLY Schedule Routine, Read Routine (OP Routine) 12/23/2023 DEXA AXIAL SKELETON BONE DENSITY 1 OR MORE SITES Schedule Routine, Read Routine (OP Routine) 09/03/2022 COLONOSCOPY Routine 04/03/2022 from Last 3 Months or Most Recently Relevant to Health Maintenance Results * XR Hip Right 2 or 3 Views W Pelvis (10/17/2024 1:24 PM TILE GRADER) Anatomical Region Laterality Modality Lower Extremities, Hip, Pelvis Right C omputed Radiography 10/17/2024 2:28 PM TILE GRADER Impressions 10/17/2024 2:28 PM TILE GRADER Moderate bilateral hip osteoarthritis. Electronically signed by: Adryan Ortiz M.D. Narrative 10/17/2024 2:28 PM TILE GRADER EXAMINATION: XR HIP RIGHT 2 OR 3 VIEWS W PELVIS HISTORY: Right hip pain FINDINGS: 2 views of the right hip were performed with comparison made to 12/24/2022. There is moderate bilateral hip osteoarthritis. Lower lumbar spine degenerative disc disease is partially imaged. There is no acute fracture of the right hip or the pelvis. Procedure Note Adryan Ortiz MD PhD - 10/17/2024 EXAMINATION: XR HIP RIGHT 2 OR 3 VIEWS W PELVIS HISTORY: Right hip pain FINDINGS: 2 views of the right hip were performed with comparison made to 12/24/2022. There is moderate bilateral hip osteoarthritis. Lower lumbar spine degenerative disc disease is partially imaged. There is no acute fracture of the right hip or the pelvis. IMPRESSION: Moderate bilateral hip osteoarthritis. Electronically signed by: Adryan Ortiz M.D. Thong Jones MD IMLory XR PROCEDURES Final Resul t * Screening Mammogram Bilateral W Molly (12/23/2023) Anatomical Region Laterality Modality Breast Bilateral Mammography Historical Provider MD NEVAREZ MAMMO PROCEDURES Graciela l Result * Dexa Axial Skeleton Bone Density 1 or 2 Site (09/03/2022) Anatomical Region Laterality Modality Body N/A Radiographic Arcelia ging Historical Provider MD NEVAREZ DXA PROCEDURES Final Result * Colonoscopy (04/03/2022) Anatomical Region Laterality Modality Other us Historical Provider ENDOSCOPY PROCEDURES Graciela l Result from Last 3 Months or Most Recently Relevant to Health Maintenance Insurance MEDICARE [facility] MEDICARE [facility] MEDICARE [employer] Care Teams Specimen Boss Relationship Specialty Start Date End Date Charles Franco MD [address] [place] [address] PCP - General Family Medicine 12/24/22
--- OUTSIDE RECORDS SUMMARY | 2024-12-29 12:51 | XMS_ITS | Continuity of Care Document ---
Author Organization [facility] Address [address] [place] [address] Phone Care Team Providers Care Granite Polisher Apprentice Name Role Phone Lee Hobbs MD Unavailable Unavailable Procedures Procedure Date INJ SPINE LUM/SAC W/ IMAGING GUIDANCE De SURGICAL TRAY LOW OSMOLAR CONTRAST (200 TO 299 MG IODI NE) DEPO-MEDROL 80MG MRI OF NECK, SPINE W/O CONTRAST 021 Advance Directives Directive Yes / No Effective Date File Name No Information Encounters Encounter Description Practice Location Reason(s) For Visit Diagnoses Date Provider Providers Copied on Encounter Copier How To [facility], [address], [place], [place], [id number], tel:[phone] [facility] No Information Faby Howard. [address] [place], [place], [id number], [place]. tel:[phone] Referring Provider: Alonso Rowley DO [address] [facility], [place], [address]. tel:[phone] [facility], [address], [place], [place], [id number], tel:[phone] [facility] No Information Faby Howard. [address], [place], [place], [id number], [place]. tel:[phone] Referring Provider: Alonso Rowley DO [address], [place], [address]. tel:[phone] Family History Family Member Type Diagnosis Age At Onset No Information Payers Payer name Insurance type Covered alliance party ID Authoriza titerry(s) [facility] [id number] Social History Type Description Quantity Date Captured Comments Sex Female Smoking Status No Information Chief Complaint And Reason For Visit No Information Reason For Referral Reason For Referral No Information History Of Present Illness Encounter Date Complaint History Of Prese nt Illness No Information Functional Status Date Functional Assessmen t No Information Instructions Date Instruction Additional Infor mation No Information Assessments Type Assessment Date No Information Patient Care Teams Name Effective Dates (start - stop) Status Members No Information
--- OUTSIDE RECORDS SUMMARY | 2024-12-29 12:51 | XMS_ITS | Encounter Summary ---
Author Organization [facility] Address [address] [facility] Attn: [place] [address] Care Team Providers Care Supervisor Calibration Name Role Phone Unavailable Primary Care Provider Unavailabl e Encounter Details Date Type Department Care Team (Late st Contact Info) Description 09/10/1993 Outpatient Historical Juvenal Phelps MD [address] [place] [phone] Social History Tobacco Use Types Packs/Day Years Used Date Smoking Tobacco: Never Assessed Comments Unknown Sex and Gender Information Value Date Recorded Sex Assigned at Not on file Legal Sex Female 4:39 AM LAW CLERK Gender Identity Not on file Sexual Orientation Not on file documented as of this encounter Plan of Treatment Not on file documented as of this encounter Visit Diagnoses Not on filedocumented in this encounter
--- OUTSIDE RECORDS SUMMARY | 2024-12-29 12:51 | XMS_ITS | Encounter Summary ---
Author Organization [employer] [facility] Address [address] [place] [address] Care Team Providers Care Head Of Academic Technology Name Role Phone Unavailable Primary Care Provider Unavailabl e Encounter Details Date Type Department Care Team (Late st Contact Info) Description 08/09/2001 Outpatient Historical [facility] Juvenal Braun MD [address] [place] [phone] SCREENING MAMM-MAILG NEOPL-OTHER (Primary Dx) Social History Tobacco Use Types Packs/Day Years Used Date Smoking Tobacco: Never Assessed Comments Unknown Sex and Gender Information Value Date Recorded Sex Assigned at Not on file Legal Sex Female 4:39 AM LIBRARY MANAGER Gender Identity Not on file Sexual Orientation Not on file documented as of this encounter Plan of Treatment Not on file documented as of this encounter Visit Diagnoses Diagnosis Other screening mammogram- Primary documented in this encounter
--- OUTSIDE RECORDS SUMMARY | 2024-12-29 12:51 | XMS_ITS | Clinical Summary ---
Author Organization [facility] Address [address] [place] [address] Care Team Providers Care Instructor Dancing Name Role Phone Charles Franco MD Primary Care Provider + Allergies Active Allergy Reactions Criticality Noted Date [...] prn Assessment & Plan (08/25/2023 4:33 PM BINDING MACHINE OPERATOR): - uncontrolled - start omeprazole Chronic idiopathic [...] sotalol Assessment & Plan (08/25/2023 4:32 PM BINDING MACHINE OPERATOR): - stable - continue current medication Assessment [...] DEXA Assessment & Plan (08/25/2023 4:32 PM BINDING MACHINE OPERATOR): - uncontrolled - rec pt consider seeing [facility] for 2nd opinion Assessment & Plan (06/26/2023 10:36 AM CDT): - uncontrolled - discussed risks associated with fx - continue calcium and vit d daily - rec pt continue discussion with endocrinology regarding options for treatment to prevent future fractures. Assessment & Plan (12/24/2022 10:25 AM CDT): - rec pt f/u with her course developer to further discuss tx of her osteoprosis Dyspepsia 10/06/2022 Aortic regurgitation 09/02/2022 High serum vitamin D 06/11/2022 Tick bite 01/24/2022 Other constipation 06/24/2021 Intestinal metaplasia of gastric mucosa 02/26/20 19 Obstructive sleep apnea 01/30/2019 Chronic atrophic gastritis 11/24/2018 Episode of moderate major depression 08/11/2018 Resolved Problems Problem Noted Date Diagnosed Date Resolved Date Acute swimmer's ear of right side 08/12/2023 08/25/2023 Assessment & Plan (08/12/2023 6:38 AM BINDING MACHINE OPERATOR): Already tried ofloxacin, cipro-hydrortisone with no relief [...] PT - robaxin and tramadol for pain Encounters Date Type Department Care Team Description 10/19/2024 Telephone [facility] Orthopa[facility] Surgery [address] [facility] 2nd Floor [address] [place] [address] Judi Villatoro CMA 10/17/2024 1:20 PM BINDING MACHINE OPERATOR Office Visit [facility] [address] [facility] [address] [place] [address] Thong Jones MD Right hip pain (Primary Dx) 10/17/2024 1:00 PM BINDING MACHINE OPERATOR - 10/17/2024 11:59 PM BINDING MACHINE OPERATOR Hospital Encounter [facility] [address] [facility] [address] [place] [phone] Right hip pain Discharge Disposition: Discharge to home or self care from Last 3 Months Immunizations Immunization Administration Dates Next Due Influenza, Unspecified 06/26/2023(Deferr ed: Patient Refused),06/14/2022(Deferred: Patient Refused) Pneumococcal Conjugate Pcv20 12/24/2022(Deferred : Patient Refused) Tdap 07/04/2020 Surgical History Surgery Date Site/Laterality Comments VERTEBROPLASTY 08/14/2021 - 09/13/2021 L1 Medical History Medical History Date Comments Osteoporosis Atrial fibrillation (HCC) Gastric reflux Hiatal hernia Family History Medical History Relation Name Comments No Known Problems Father Arthritis Mother Relation Name Status Comments Father (Age 70) Mother (Age 62) Social History Tobacco Use Types Packs/Day Years [...] file Not on file Not on file Obstetrics History Last Filed Vital Signs Vital Sign Reading Time Taken Comments Blood Pressure 134/82 03/16/2024 9:35 AM CDT Pulse 61 03/16/2024 9:35 AM CDT Temperature 36.6 C (97.9 F) 03/16/2024 9:35 AM CDT Respiratory Rate 16 03/16/2024 9:35 AM CDT Oxygen Saturation 98% 03/16/2024 9:35 AM CDT Inhaled Oxygen Concentration - - Weight 60.8 kg (134 lb) 10/17/2024 1:57 PM BINDING MACHINE OPERATOR Height 149.2 cm (4' 10.75 ) 10/17/2024 1:[address] Body Mass Index 27.3 10/17/2024 1:57 PM BINDING MACHINE OPERATOR Plan of Treatment Upcoming Encounters Date Type Department Care Team (Late st Contact Info) Description 06/16/2025 Hospital Encounter [facility] Operating Room [address] [place] [address] Thong Jones MD [address] [facility] [address] [place] [address] Scheduled Procedures Name Priority Associated Diagnoses Date/Ti me ARTHROPLASTY TOTAL HIP - ANTERIOR APPROACH - MICROPORT Primary osteoarthritis of right hip Health Maintenance Due Date Last Done Comments Hepatitis C Screening 1956 Hepatitis B Screening 1974 Pneumococcal vaccine 65+ (1 of 1 - PCV) 2006 Zoster Vaccine (1 of 2) 2006 Depression Screening 06/26/2024 06/26/2023, 12/25/19 23 Fall Risk Assessment 06/26/2024 06/26/2023, 12/25/19 23 Well Visit 65+ 06/26/2024 06/26/2023 Osteoporosis Screening-Bone Density Scan 09/03/2024 09/03/2022, 09/03/2022 Breast Cancer Screening-Mammogram 12/22/2024 12/23/2023, 12/02/2022, 09/11/2017, Additional history exists Colon Cancer Screening-Colonoscopy 04/03/20252021 Influenza Vaccine (Season Ended) 2025 DTaP/Tdap/Td Vaccine (2 - Td or Tdap) 07/04/2030 07/04/2020 Procedures Procedure Name Priority Date/Time Associated Diagnosis Comments XR HIP RIGHT W PELVIS 2 OR 3 VIEWS Schedule Routine, Read Routine (OP Routine) 10/17/2024 1:24 PM BINDING MACHINE OPERATOR Right hip pain SCREENING MAMMOGRAM BILATERAL W MOLLY Schedule Routine, Read Routine (OP Routine) 12/23/2023 DEXA AXIAL SKELETON BONE DENSITY 1 OR MORE SITES Schedule Routine, Read Routine (OP Routine) 09/03/2022 COLONOSCOPY Routine 04/03/2022 from Last 3 Months or Most Recently Relevant to Health Maintenance Results * XR Hip Right 2 or 3 Views W Pelvis (10/17/2024 1:24 PM BINDING MACHINE OPERATOR) Anatomical Region Laterality Modality Lower Extremities, Hip, Pelvis Right C omputed Radiography 10/17/2024 2:28 PM BINDING MACHINE OPERATOR Impressions 10/17/2024 2:28 PM BINDING MACHINE OPERATOR Moderate bilateral hip osteoarthritis. Electronically signed by: Adryan Ortiz M.D. Narrative 10/17/2024 2:28 PM BINDING MACHINE OPERATOR EXAMINATION: XR HIP RIGHT 2 OR 3 [...] by: Adryan Ortiz M.D. Thong Jones MD IMG XR PROCEDURES Final Resul t * Screening Mammogram Bilateral W Molly (12/23/2023) Anatomical Region Laterality Modality Breast Bilateral Mammography Historical Provider MD NEVAREZ MAMMO PROCEDURES Graciela l Result * Dexa Axial Skeleton Bone Density 1 or 2 Site (09/03/2022) Anatomical Region Laterality Modality Body N/A Radiographic Arcelia ging Historical Provider IMLory DXA PROCEDURES Final Result * Colonoscopy (04/03/2022) Anatomical Region Laterality Modality Other Historical Provider ENDOSCOPY PROCEDURES Graciela l Result from Last 3 Months or Most Recently Relevant to Health Maintenance Insurance MEDICARE [facility] [facility] [place] [facility] [place] [facility] [place] MEDICARE [employer] [place] Care Teams Instructor Dancing Relationship Specialty Start Date End Date Charles Franco MD [address] [place] [id number] PCP - General Family Medicine 12/24/22
--- OUTSIDE RECORDS SUMMARY | 2024-12-29 12:51 | XMS_ITS | Clinical Summary ---
Author Organization [facility] Address [address] [place] [address] Care Team Providers Care Spanish Literature Professor Name Role Phone Tea Young MD Primary Care Provider [phone] Source Comments [facility] and Associated Physician Practices is amultiple site organization consisting of ambulatory clinics and hospital sitesin [place], [place], [place] and [place]. This disclosure is being madepursuant to the Care Everywhere program and may not contain all information available regarding this patient. Last updated 18.[facility] Allergies Active Allergy Reactions Criticality Noted Date Comments Metoprolol Other Low 01/30/2020 Constipation, weight gain Skin Adhesives Skin Reactions 02/12/2022 Medications * Be aware that medications may not be up to date on this document. Alwaysverify current medications with the patient. CALCIUM-PHOSPHOR US PO Take by mouth 2 times daily Active vitamin C (ASCORBIC ACID) 1000 MG tablet Take 1,000 mg by mouth at bedtime Active Cholecalciferol (VITAMIN D) 125 MCG (5000 UT) CAPS Take 2 capsules by mouth once daily Active Zinc Sulfate (ZINC 15 PO) Take by mouth once daily Active QUERCETIN PO Take by mouth once daily Active lidocaine (LIDODERM) 5 % patch Apply 2 (two) patches to skin once daily Apply to most painful area. Leave on for up to 12 hrs; then don't use more patches for 12 hrs 60 patch 4 Active Additional Information Patient taking differently:2 patch TransdermalPRN, Apply to most painful area. Leave on for up to 12 hrs; then don't use more patches for 12 hrs, Reported on 02/12/2022 hydrocortisone, rectal, (ANUSOL-HC) 2.5 % creamIndications :Hemorrhoids, unspecified hemorrhoid type Insert into the rectum at bedtime 30 g 1 2 Active Active Problems Problem Noted Date Diagnosed Date Tick bite 01/24/2022 Osteoporosis Back pain Atrial fibrillation Family History Medical History Relation Name Comments Other Brother Suicide Other Father MD Other Mother MVA Cancer - Colon Neg Hx Colon polyps Neg Hx Malignant Hyperthermia Neg Hx Relation Name Status Comments Brother Father Mother Sister Alive Social History Tobacco Use Types Packs/Day Years Used Date Smoking Tobacco: Never Smokeless Tobacco: Never Tobacco Cessation:Counseling Given: Not Answered Alcohol Use Standard Drinks/Week Comments Not Currently 0 (1 standard drink = 0.6 oz pur e alcohol) Comments No Sex and Gender Information Value Date Recorded Sex Assigned at Not on file Legal 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 Gender Identity Not on file Sexual Orientation Not on file Occupation Industry Job Start Date Job End Date Housewife Not on file Not on file Not on file Last Filed Vital Signs Vital Sign Reading Time Taken Comments Blood Pressure 128/80 01/24/2022 8:43 AM CDT Pulse 78 07/18/2022 1:04 PM CDT Temperature 36.2 C (97.2 F) 07/18/2022 1:04 PM CDT Respiratory Rate 14 07/18/2022 1:04 PM CDT Oxygen Saturation 95% 07/18/2022 1:04 PM CDT Inhaled Oxygen Concentration - - Weight 56.2 kg (124 lb) 07/18/2022 1:04 PM CDT Height 157.5 cm (5' 2 ) 07/18/2022 1:04 PM CDT Body Mass Index 22.68 07/18/2022 1:04 PM CDT Plan of Treatment Health Maintenance Due Date Last Done Comments BONE DENSITY TESTING 1955 COLOGUARD (AGES 45-75) - COL ON CA SCREENING 1956 CT COLONOGRAPHY - COLON CA SCREENING 1955 FIT - COLON CA SCREENING 1955 FLEX SIG - COLON CA SCREENING 1955 MAMMOGRAM 1955 DTAP/TDAP/TD VACCINES (1 - Tdap) 11/17/1975 PNEUMOCOCCAL VACCINE 50+ (1 of 1 - PCV) 2006 ZOSTER VACCINE (1 of 2) 2006 COVID-19 VACCINE (1 - 2023-2 5 season) 2024 DEPRESSION SCREENING 09/14/2024 COLON MONITORING 04/03/2025 04/03/2022 Colorectal Cancer Screening 04/03/2025 INFLUENZA VACCINE (Season Ended) 2025 LIPID TESTING 08/07/2026 08/07/2021 Respiratory Syncytial Virus (RSV) Vaccine Pt: or over 60 yrs (1 - 1-dose 75+ series) 11/17/2031 COLONOSCOPY - COLON CA SCREENING 04/03/2032 04/03/20 22 HEPATITIS C SCREENING Completed 08/07/2021 HEPATITIS B VACCINE Aged Out No longe r eligible based on patient's age to complete this topic HIB VACCINE Aged Out No longer eligi ble based on patient's age to complete this topic HPV VACCINE Aged Out No longer eligi ble based on patient's age to complete this topic MENINGOCOCCAL (Group B) VACC INE SHARED DECISION-MAKING Aged Out No longer eligibl e based on patient's age to complete this topic MENINGOCOCCAL GROUPS A/C/Y/W VACCINE Aged Out No longer eligible b ased on patient's age to complete this topic Procedures Procedure Name Priority Date/Time Associated Diagnosis Comments ENDOSCOPY, COLON, DIAGNOSTIC Routine 04/03/2022 Hemorrhoids, unspecified hemorrhoid type from Last 3 Months or Most Recently Relevant to Health Maintenance Results * ENDOSCOPY, COLON, DIAGNOSTIC (04/03/2022) Azeb Temple ADULT PROBATION OFFICER-DIRECT MARKETING EXECUTIVE GI PROCEDURE ORDERABLES Final Result [facility] RESULT SCAN from Last 3 Months or Most Recently Relevant to Health Maintenance Insurance [facility] [place] [address] Care Teams Spanish Literature Professor Relationship Specialty Start Date End Date Tea Young MD PCP - General Internal Medicine 10/21/21
== END 2024-12-29 12:33 | disposition home or self-care (01) ==
PROVIDERS: PCP Family Medicine; Visit Provider Family Medicine
DX: Z12.31 Encounter for screening mammogram for malignant neoplasm of breast (principal)
CPT/HCPCS: 77063; 77067